=== PATIENT | male | born 1940 | race Hispanic/Latino ===

== ENCOUNTER 2016-08-23 18:38 | Inpatient (IN) | payer OTHER ==
[2016-08-20 02:51] VITALS: BMI 34.6
[2016-08-23] MEDS: Insulin Reg-LOW-Coverage SC SCH (22:20)
[2016-08-24] MEDS: Insulin Reg-LOW-Coverage SC SCH ×4 (06:54→21:23)
[2016-08-24 08:38] LABS: HEMATOCRIT 34.9 % (42.0-52.0); MEAN CELL VOLUME 90.6 fL (80.0-105.0); MEAN CORPUSCULAR HEMOGLOBIN 29.6 pg (25.0-35.0); MEAN CORPUSCULAR HGB CONC 32.7 g/dl (31.0-37.0); MEAN PLATELET VOLUME 8.3 fl (7.0-11.0); RED CELL DISTRIBUTION WIDTH 17.2 % (11.5-14.5); WHITE BLOOD COUNT 10.1 10^3/ul (4.5-11.0)
[2016-08-24 08:46] LABS: ALB/GLOB RATIO 0.9 (1.1-1.8); BILIRUBIN,TOTAL 1.6 mg/dL (0.2-1.3); CALCIUM 8.8 mg/dL (8.4-10.5); POTASSIUM 4.8 mmol/L (3.6-5.0); TOTAL PROTEIN 7.5 g/dL (5.8-8.3)
[2016-08-24 09:52] LABS: INR 2.46 (0.93-1.08)
[2016-08-24] MEDS: POLYETHYLENE GLYCOL 3350 17 GM/Dose PACKET PO SCH (10:31)
[2016-08-25] MEDS: Insulin Reg-LOW-Coverage SC SCH ×4 (06:35→21:52)
[2016-08-25] MEDS: POLYETHYLENE GLYCOL 3350 17 GM/Dose PACKET PO SCH (10:12)
[2016-08-26] MEDS: Insulin Reg-LOW-Coverage SC SCH ×4 (07:26→22:37)
[2016-08-26] MEDS: POLYETHYLENE GLYCOL 3350 17 GM/Dose PACKET PO SCH (10:07)
[2016-08-26] MEDS ORDERED: metOLazone 5 MG TAB PO STA (14:53)
--- NOTE | 2016-08-26 16:36 | CON ---
DATE: 08/26/2016 The patient is in room 318, bed 1. REASON FOR CONSULTATION: Acute decompensated congestive heart failure, history of ischemic cardiomyo justo, history of CABG, history of AICD. HISTORY OF PRESENT ILLNESS: This is a 75-year-old male, resident of [place], who was visiting robyn grijalva here. He was brought to the Emergency Room because of having shortness of breath for a couple of days. The patient also had PND and orthopnea. The patient is known to have coronary artery disea se for which he had triple vessel bypass in 2004, history of AICD insertion in 2010 when he was told to have LV ejection fraction around 20%. The patient denies chest pain. The patient is sitting in c hair comfortably without any cardiac symptoms. The patient was on medical floor where he was gilberto sloan and now he is in transitional care unit for deconditioning and physical therapy. PAST MEDICAL HISTORY: Diabetes, hypertension, hyperlipidemia, coronary artery disease, status post C ABG in 2004, triple vessel, status post AICD insertion in 2010 and is being followed in [place] with a immigration patrol inspector. PERSONAL HISTORY: Denies smoking. Denies any history of alcohol abuse. Used to smoke 30 years ago and he stopped. HOME MEDICATIONS: The patient's medications include Coumadin 3 mg daily, glipizide, Lasix, Coreg, me tolazone, Plavix, gabapentin. ALLERGIES: No known allergies. REVIEW OF SYSTEMS: All the systems were reviewed, positive mentioned in the history, others were neg ative. DIAGNOSES: The patient's past medical history is significant for diabetes, hypertension, hyperlipide glory, coronary artery disease, status post CABG 2004, triple vessel bypass, status post AICD insertion in 2010, being followed in [place] by immigration patrol inspector. PERSONAL HISTORY: Denies smoking. Denies any alcohol abuse, smoking was stopped 30 years ago. MEDICATIONS: Included Coumadin, Lasix, Coreg, Tricor, Plavix, gabapentin, Levaquin, and Ambien 5 mg. ALLERGIES: No known drug allergies. REVIEW OF SYSTEMS: All the systems were reviewed, positive mentioned in the history, others were neg ative. PHYSICAL EXAMINATION: VITAL SIGNS: Blood pressure 114/69, respirations 18, pulse 89, temperature 97.3. HEENT: Head is normocephalic. Eyes: Pupils normal. Conjunctivae slightly pale. NECK: JVP low. Carotids equal. THORAX: AP diameter normal. LUNGS: Clear. CARDIOVASCULAR: S1, S2. ABDOMEN: Soft, nontender, no organomegaly. EXTREMITIES: No clubbing, no cyanosis. LABORATORY DATA: Shows WBC 10.1, hemoglobin 11.4, hematocrit 34.9, platelets 241. Sugar 160. Sodiu m 134, potassium 4.8, BUN 67, creatinine 2.0, total bilirubin 1.6, AST 38, ALT 30. Total protein 7.5 , albumin . Echocardiogram was done 08/21/2016, showed 4-chamber dilatation consistent with card iomyopathy with LV ejection fraction of 25%. At that time, patient was on Primacor, mild to moderate aortic stenosis, mitral regurgitation, tricuspid regurgitation, aortic regurg, RVSP 42 mmHg. Chest x-ray showed mild cardiomegaly status post CABG, calcification in the aortic arch, stable position of left-sided pacemaker device, decompensated congestive heart failure, borderline troponin 0.19 possib ly secondary to underlying coronary artery disease versus congestive heart failure in the face of chr onic kidney disease, creatinine clearance of only 30, may relate to AICD insertion, coronary artery d isease status post CABG, status post AICD insertion. PLAN: The patient is on Lasix 40 b.i.d., still has some swelling on the legs, will give Zaroxolyn 5 mg today to help with the swelling on the legs. The patient already getting warfarin 2 mg p.o. daily . Last prothrombin time was on 08/24/2016. Protime 26.6, INR 2.46, therapeutic level. The pat fausto is in transitional care unit for deconditioning and continue physical therapy. Because of swell ing of legs, we will give her Zaroxolyn 5 mg p.o. today. The patient is on Coreg 6.25 b.i.d., warfar in 2 mg daily, Lasix 40 p.o. b.i.d., Neurontin 300 mg p.o. b.i.d., Plavix 75 mg daily, Seroquel 50 mg p.o. at night. We will continue present therapy and we will follow with you. Deya Mancia MD cc: [id number] TT: 08/26/2016 16:36:11 Confirmation # [id number] Dictation # [id number] dn
[2016-08-27] MEDS: Insulin Reg-LOW-Coverage SC SCH ×4 (06:34→22:01)
[2016-08-27 06:46] LABS: ADD MANUAL DIFF? NO
[2016-08-27 06:55] LABS: BASO # 0.08 K/mm3 (0.0-2.0); BASO % 1.1 % (0.0-3.0); EOS # 0.5 (0.0-0.7); EOS % 6.6 % (1.5-5.0); GRAN # 4.42 (1.4-6.5); GRAN % 59.5 % (50.0-68.0); HEMATOCRIT 34.1 % (42.0-52.0); LYMPH # 1.5 (1.2-3.4); LYMPH % 20.4 % (22.0-35.0); MEAN CELL VOLUME 90.2 fL (80.0-105.0); MEAN CORPUSCULAR HEMOGLOBIN 29.9 pg (25.0-35.0); MEAN CORPUSCULAR HGB CONC 33.1 g/dl (31.0-37.0); MEAN PLATELET VOLUME 8.2 fl (7.0-11.0); MONO # 0.9 (0.1-0.6); MONO % 12.4 % (1.0-6.0); PLATELET COUNT 261 10^3/uL (120.0-450.0); WHITE BLOOD COUNT 7.4 10^3/ul (4.5-11.0)
[2016-08-27 07:21] LABS: ALB/GLOB RATIO 0.8 (1.1-1.8); BILIRUBIN,TOTAL 1.3 mg/dL (0.2-1.3); CALCIUM 8.6 mg/dL (8.4-10.5); TOTAL PROTEIN 6.9 g/dL (5.8-8.3)
--- NOTE | 2016-08-27 10:18 | PN ---
DATE: 08/27/2016 REASON FOR CONSULTATION AND FOLLOWUP: Decompensated congestive heart failure, history of ischemic ca rdiomyopathy, history of CABG, history of AICD. BRIEF CLINICAL HISTORY: A 75-year-old male, resident of [place], who was visiting family, kris brandt here because of acute decompensated congestive heart failure, history of coronary artery disease, triple-vessel bypass 2004, history of AICD in 2010, told ejection fraction 20%. Repeat echo in [facility] ejection fraction 25%. The patient initially treated on the floor with IV Primacor, diur etics, significantly improved. Now, the patient transferred to TCU for transitional care unit for th e continuity of care. Denies any chest pain, shortness of breath, any palpitation. Lying flat on e bed. PHYSICAL EXAMINATION: VITAL SIGNS: Temperature afebrile, heart rate 70, blood pressure 109/68. HEENT: PERRLA. Extraocular muscles intact. NECK: Supple. No carotid bruit or thyromegaly. CHEST: Clear to auscultation. HEART: S1, S2 regular. ABDOMEN: Soft. EXTREMITIES: Clubbing and cyanosis negative. LABORATORY DATA: Blood workup as follows: WBC 7.4, hemoglobin 11, hematocrit 34.1, platelet count 2 61. Chemistry shows sodium 137, potassium 4, chloride 100, carbon dioxide 28, anion gap of 13, BUN 6 0, creatinine 1.9. IMPRESSION: Renal insufficiency, diabetes, hypertension, hyperlipidemia, chronic renal insufficiency , cardiomyopathy. Last echo shows ejection fraction 25 when the patient was on Primacor. Known his tory of decreased left ventricular function by 20% in [place]. The patient is being followed in [place]. History of coronary artery bypass surgery, triple vessel, history of automatic implan table cardioverter-defibrillator in 2010, renal insufficiency. History of chronic atrial fibrillatio n. INR 2.46. RECOMMENDATION: Continue anticoagulation. Continue Lasix. Continue rehab. We will follow with you . Thank you, Dr. Carrillo, for providing the opportunity in taking care of the patient. Monitor elect rolytes. We will follow with you. Deya Fisher MD cc: [id number] TT: 08/27/2016 10:17:52 Confirmation # [id number] Dictation # [id number] tn
--- NOTE | 2016-08-27 10:33 | PN ---
DATE: 08/26/2016 The patient is a 75-year-old male who was admitted to [facility] on 08/20 with congestive heart failure. He had been living in [place]. He has recently been discharged from a hospital there, including a subacute rehab facility. However, he continued to fall at home. His legs were ed ematous. Therefore, his son who was a [facility] resident brought him to [facility] for admission and furt her evaluation and treatment. He is known to have a history of atrial fibrillation, diabetes, hypert ension, neuropathy, cardiac arrhythmias, status post permanent pacemaker implant. He is status post cholecystectomy. He did well. He was diuresed on the medical floor and on 08/23 was transferred to [facility] transitional care unit for further diuresis and physical therapy. Prior to his transfer, the sudarshan ent's son related to me the patient's suicidal ideations. He was saying several times that life is n ot worth living. Even though he had guns in his house in [place], he said that way would be too messy; however, in the son's care being transported to [facility], he did relate his tho ughts on carbon monoxide poisoning as a way of suicide. We are continuing with the patient's medicat ions at this time including Coreg 6.25 mg twice a day, warfarin 2 mg once a day, Glucotrol 5 mg, Lasi x 40 mg twice a day, MiraLax, Motrin, Neurontin 300 mg twice a day, Plavix 75 mg, Seroquel 50 mg, tra madol 50 mg q. 6 hours. PHYSICAL EXAMINATION: GENERAL: When seen, the patient is sitting up on the side of his bed. He is complaining of knee tawana n with physical therapy, saying that no one is addressing that. I will change his ibuprofen p.r.n. t o q. 8 hours around the clock to make sure he is covered for the knee pain. LUNGS: Clear. HEART: Regular. EXTREMITIES: Legs are still edematous, +2 to +3. We are attempting to maintain a negative fluid bal ance. A.M. labs are ordered. We will continue to follow the patient closely. We are awaiting consultation from psychiatry, Dr. Will, concerning his suicidal ideations. Chuck Carrillo MD cc: [id number] TT: 08/27/2016 10:33:05 Confirmation # [id number] Dictation # [id number] tn
[2016-08-27] MEDS: POLYETHYLENE GLYCOL 3350 17 GM/Dose PACKET PO SCH (10:44)
[2016-08-28] MEDS: Insulin Reg-LOW-Coverage SC SCH ×4 (06:32→21:56)
[2016-08-28] MEDS: POLYETHYLENE GLYCOL 3350 17 GM/Dose PACKET PO SCH (10:24)
[2016-08-28] MEDS ORDERED: metOLazone 5 MG TAB PO STA (12:35)
--- NOTE | 2016-08-28 13:36 | PN ---
DATE: 08/28/2016 DATE OF SERVICE: 08/28/2016 LOCATION: The patient is in room 318, bed 1. REASON FOR CONSULTATION AND FOLLOWUP: Decompensated congestive heart failure, history of ischemic ca rdiomyopathy, history of CABG, history of AICD. BRIEF HISTORY: A 75-year-old male, resident of [place], who was visiting family, brought here b ecause of acute decompensated congestive heart failure. The patient has history of coronary artery d isease, triple vessel bypass surgery in 2004, history of AICD insertion in 2010, ejection fraction ar ound 20%. Repeat echo done in hospital showed ejection fraction 25%. The patient treated on medical floor, got better, now in transitional care unit for physical therapy and deconditioning. The patie nt denies any chest pain, shortness of breath, or palpitation. Still has edema on the legs, which is also slowly getting less. PHYSICAL EXAMINATION: VITAL SIGNS: Blood pressure 108/68, pulse 87, respirations 18-20. The patient is afebrile. HEAD: Normocephalic. EYES: Pupils normal. Conjunctivae slightly pale. NECK: JVP low. Carotid equal. THORAX: AP diameter normal. LUNGS: Clear. CARDIOVASCULAR: S1, S2. ABDOMEN: Protuberant, no organomegaly. EXTREMITIES: The patient still has 3+ edema bilaterally. No clubbing and no cyanosis. LABORATORY DATA: WBC 7.4, hemoglobin 11.3, hematocrit 34.1, platelet 261. Sodium 137, potassium 4.0 , BUN 67, creatinine 1.9, glucose 91. AST, ALT normal. TSH 4.2. DIAGNOSES: Renal insufficiency, diabetes, hypertension, hyperlipidemia, deconditioning, coronary art vitaly disease, status post coronary bypass surgery, automatic implantable cardioverter defibrillator in [facility], renal insufficiency, chronic atrial fibrillation. PLAN: We will give one dose of Zaroxolyn 5 mg today to help with diuresis to decrease the edema of t he legs further. We will continue to follow with you. Deya Mancia MD cc: [id number] TT: 08/28/2016 13:36:37 Confirmation # [id number] Dictation # [id number] sn
[2016-08-29] MEDS: Insulin Reg-LOW-Coverage SC SCH ×4 (06:36→21:40)
[2016-08-29] MEDS: POLYETHYLENE GLYCOL 3350 17 GM/Dose PACKET PO SCH (11:00)
--- NOTE | 2016-08-29 12:17 | PN ---
DATE: 08/29/2016 REASON FOR CONSULTATION AND FOLLOWUP: Decompensated congestive heart failure, history of ischemic ca rdiomyopathy, history of CABG, history of AICD. BRIEF CLINICAL HISTORY: This is a 75-year-old male, resident of [place], who [facility] and brought here because of acute decompensated congestive heart failure. The patient has history of coronary artery disease, status post triple bypass in 2004; history of AICD in 2010, ejection frac tion 20. Repeat echo done at hospital with ejection fraction of 25%, was on Primacor. The patient w as treated on medical floor with IV Lasix and Primacor, significantly improved. Now patient is in [facility] unit for continuity of care and physical therapy. Denies any chest pain, shortness o f breath, any palpitation. Lying flat on the bed. PHYSICAL EXAMINATION: VITAL SIGNS: Temperature afebrile, heart rate 80, blood pressure 127/73. HEENT: PERRLA. Extraocular muscles intact. NECK: Supple. No carotid bruits. No thyromegaly. CHEST: Clear to auscultation. HEART: S1, S2 regular. ABDOMEN: Soft. EXTREMITIES: Clubbing and cyanosis negative. BLOOD WORKUP: WBC 7.____, hemoglobin 11.3, hematocrit 34.1, platelet count 261. INR 2.46. Recent l ab SMA-7 not available. Last one on 08/27/2016 shows a sodium 137, potassium 4, chloride 100, carbon dioxide 28. IMPRESSION: Chronic atrial fibrillation, decompensated congestive heart failure, ischemic cardiomyop athy, status post automatic implantable cardioverter-defibrillator, status post coronary artery bypas s graft in the past, diabetes, hypertension, hyperlipidemia, obesity. RECOMMENDATION: Will repeat the lab in the morning. Continue diuretics. Monitor electrolytes. Mon itor INR. Will follow with you. Thank you, Dr. Carrillo, for providing the opportunity in taking care of the patient. Will follow w ith you. Deya Fisher MD cc: [id number] TT: 08/29/2016 12:16:50 Confirmation # [id number] Dictation # [id number] mn
--- NOTE | 2016-08-29 14:28 | CON ---
DATE: 08/29/2016 HISTORY OF PRESENT ILLNESS: The patient is a 75-year-old white male with a history of depres jaylen, no reports of suicide attempts or psychiatric hospitalizations, who was admitted to [facility] with congestive heart failure. The patient's son also reported collateral that patient i ndicated prior to admission, he had suicidal thoughts, indicating that his life was not worth living and that even though he had guns in his home in [place], he said that way would be too messy. T he patient also did indicate to his son that he had thoughts about carbon monoxide poisoning as a way of suicide. Psychiatry was consulted to evaluate for these reported suicidal ideations as well as marc avinash's agitation on the unit. I met with patient at bedside today. He is alert and oriented to cu rrent location, circumstances, month and year. The patient is superficially cooperative with fair fo cus and eye contact. Does not appear to be entirely engaged with my interview, but he is cooperative . The patient presently denies any depression, but does report having a history of depression. He a ppears to be evasive about this subject. Regarding any suicidal thoughts, he says "not now, no." He is fairly coherent. He denies any hallucinations. He denies any paranoid thoughts, and delusions w ere not elicited. The patient is in fair control right at this time, although this provider did read prior notes that indicate that the patient had periods of agitation and told a staff member that he wanted to punch their face. Affect is constricted and insight and judgment is considered to be fair. Impulse control is strenuously intact. VITAL SIGNS AND LABORATORY: Reviewed by this provider. PSYCHIATRIC MEDICATIONS: The patient is being prescribed Seroquel 50 mg at 10:00 p.m. and Ambien 5 m g at bedtime p.r.n. SOCIAL HISTORY: The patient was born in [place]. He is . He has 3 children. He lives by himself. 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 The patient denies any drug or alcohol issues. The patie nt reports that he was arrested a few times for disorderly conduct approximately 30 years ago. PSYCHIATRIC HISTORY: The patient denies any psychiatric inpatient hospitalizations. Denies any suic star attempts. The patient denies any current psychiatric treatment; however, did follow up with a ps ychiatrist about a year ago on one occasion at the [facility] for suicidal thoughts. The patient denies medi cations were ever prescribed for him at that point, but does report that he has been prescribed medic ations in the past for depression; however, cannot recall that. IMPRESSION: Depression, not otherwise specified. Rule out major depressive disorder, severe, recurr ent. Rule out contribution of adjustment disorder with depression as well as delirium contributing t o patient's agitation and confusion on the unit earlier. RECOMMENDATIONS: 1. At this time, patient is minimizing his symptoms and denies having any suicidal thoughts and he e tacho denies having any depression contrary to account by his son. Psychiatry will continue to follow up with patient and try to elicit a trust; however, at this time, patient is evasive regarding his cu rrent functioning. In this respect, I cannot start prescribing medication until he is ready and will ing to take it for mood symptoms. 2. Nonetheless, I will prescribe Haldol 1 mg every 6 hours p.r.n. for agitation if this should recur . 3. As mentioned, psychiatry will continue to follow up and this case will be endorsed to Dr. Jovany muñoz, who will be returning tomorrow. Ruchi Jacobs MD cc: [id number] TT: 08/29/2016 14:27:23 Confirmation # [id number] Dictation # [id number] ana cristina
[2016-08-29 15:41] VITALS: RESP 18
[2016-08-30] MEDS: Insulin Reg-LOW-Coverage SC SCH ×4 (06:30→22:23)
[2016-08-30 06:55] LABS: ADD MANUAL DIFF? NO
[2016-08-30 07:10] LABS: BASO # 0.03 K/mm3 (0.0-2.0); BASO % 0.4 % (0.0-3.0); EOS # 0.6 (0.0-0.7); EOS % 7.7 % (1.5-5.0); GRAN # 4.34 (1.4-6.5); GRAN % 58.9 % (50.0-68.0); HEMATOCRIT 32.9 % (42.0-52.0); LYMPH # 1.8 (1.2-3.4); LYMPH % 23.8 % (22.0-35.0); MEAN CELL VOLUME 90.6 fL (80.0-105.0); MEAN CORPUSCULAR HEMOGLOBIN 29.8 pg (25.0-35.0); MEAN CORPUSCULAR HGB CONC 32.8 g/dl (31.0-37.0); MEAN PLATELET VOLUME 7.7 fl (7.0-11.0); MONO # 0.7 (0.1-0.6); MONO % 9.2 % (1.0-6.0); PLATELET COUNT 250 10^3/uL (120.0-450.0); RED CELL DISTRIBUTION WIDTH 16.8 % (11.5-14.5); WHITE BLOOD COUNT 7.4 10^3/ul (4.5-11.0)
[2016-08-30 07:15] LABS: ALB/GLOB RATIO 0.8 (1.1-1.8); BILIRUBIN,TOTAL 0.9 mg/dL (0.2-1.3); CALCIUM 8.8 mg/dL (8.4-10.5); MAGNESIUM 2.1 mg/dL (1.7-2.2); PHOSPHOROUS 4.2 mg/dL (2.5-4.5); POTASSIUM 3.7 mmol/L (3.6-5.0)
[2016-08-30 07:26] LABS: INR 2.4 (0.93-1.08)
--- NOTE | 2016-08-30 09:40 | PN ---
DATE: 08/30/2016 REASON FOR CONSULTATION AND FOLLOWUP: Decompensated congestive heart failure, history of ischemic ca rdiomyopathy, history of CABG, history of AICD. BRIEF CLINICAL HISTORY: This is a 75-year-old male, resident of [place], who was visiting famil y and brought here because of acute decompensated congestive heart failure. The patient has a histor y of coronary artery disease, history of triple vessel bypass in 2004, history of AICD in 2010, eject ion fraction 20%. Recent echo done: Ejection fraction 25%, on Primacor. The patient was treated me dically for now. The patient was transferred to transitional care unit for the continuity of the car e. History of chronic atrial fibrillation, on anticoagulation. PHYSICAL EXAMINATION: VITAL SIGNS: Temperature afebrile, heart rate 73, blood pressure 106/67. HEENT: PERRLA. Extraocular muscles intact. NECK: Supple. No carotid bruits. No thyromegaly. CHEST: Clear to auscultation. HEART: S1, S2 regular. ABDOMEN: Soft. EXTREMITIES: Clubbing and cyanosis negative. BLOOD WORKUP: WBC 7.4, hemoglobin 10.9, hematocrit 32.9, platelet count 250. Chemistry shows sodium 141, potassium 3.7, chloride 90, carbon dioxide 33, anion gap of 13, BUN 66, creatinine 1.9. IMPRESSION: Chronic kidney disease; acute kidney injury, acute on chronic; obesity, diabetes, hypert ension, hyperlipidemia; coronary artery disease, ischemic cardiomyopathy, ejection fraction 20%, stat us post automatic implantable cardioverter-defibrillator, history of coronary artery bypass in 2004; history of chronic atrial fibrillation, on anticoagulation. INR therapeutic 2.4. RECOMMENDATION: Continue Coreg 6.25 twice. Continue Coumadin 2 mg; goal is to keep INR between 2 an d 2.5. Continue Lasix 40 b.i.d. Continue Plavix. Continue rehab. Will follow with you. Thank you, Dr. Carrillo, for providing the opportunity in taking care of this patient. CV status is stable. Will follow with you. Deya Fisher MD cc: [id number] TT: 08/30/2016 09:39:23 Confirmation # [id number] Dictation # [id number] mn
[2016-08-30] MEDS: POLYETHYLENE GLYCOL 3350 17 GM/Dose PACKET PO SCH (09:47)
[2016-08-30] MEDS: metOLazone 5 MG TAB PO SCH (13:33)
--- NOTE | 2016-08-30 15:59 | PN ---
DATE: 08/30/2016 Shortly, the patient is a 75-year-old male with history of depression. No history of suici rufino attempts or psychiatric admissions. The patient was admitted to the medical floor for evaluation of congestive heart failure. Psych consult was called for evaluation of possible suicidal ideations . The patient was evaluated today. The patient initially was seen by Dr. Jacobs; notes reviewed. As per Dr. Jacobs's notes, patient had suicidal ideation prior to coming to the hospital, but during her interview with the patient, patient denied any thoughts of harming himself which is confirmed by thi s sports writer today. The patient reported that he came to the hospital because of the falls and not feeli ng good. At present moment patient denied any falls and the patient reported that he feels better. The patient denied any thoughts of killing himself or others. The patient reported that his depressi ve symptoms are much better. The patient is not sure what medication he is taking but reported to mauro ve improvement with his mood as well as sleep. The patient reported that he has future plans to stay with his daughter and son here in [place]. The patient denied hearing voices, denied seeing things. The patient was appreciative toward the medical team as well as psychiatric team. The patient repo rted to have fair appetite and sleep and expressed no concerns. The patient was observed watching TV , using headphones; seems to be enjoying it. VITAL SIGNS: This sports writer reviewed vital signs. Vital signs seem to be stable. Temperature 97.3, pu lse is 77, blood pressure 101/64, respirations 18, oxygen saturation 96%. MEDICATIONS: Reviewed. The patient is on Coreg, Lasix, Colace, Lasix, Neurontin, Motrin, Humulin, M iraLax. The patient is on Seroquel 50 mg at 10 p.m., Senokot, Ultram, Coumadin, and Ambien for insom isaías 5 mg. LABORATORY DATA: Reviewed. MENTAL STATUS EXAMINATION: The patient appears to be at his chronological age. Fair eye contact. S peech was somewhat underproductive, but normal rate and tone. Mood described, "I feel much better." Affect was constricted, mood congruent. Thought process was coherent and goal directed. Thought co ntent: The patient denied visual, auditory, tactile hallucinations. Denied paranoid ideations. The patient denied thoughts of harming himself or others. Denied intent or plan. Insight and judgment are improving. Impulses are well controlled. IMPRESSION: This sports writer agreed with Dr. Jacobs. Most likely the patient had depressive symptoms rela horacio to delirium due to his medical condition for what patient was started on Seroquel. RECOMMENDATIONS: Continue Seroquel 50 mg at the nighttime for at least a week then it has to be disc ontinued. The patient did not have any p.r.n. medication of Haldol. The patient would benefit from followup with a psychiatrist as outpatient. Please provide phone number for [facility]. The patient has future oriented plans to stay with his family in [place], with his daughter and his son. The patient denied any plan or intent of killing himself. The patient will stay in [facility]. Psychiatric team will be following patient every other day to make sure that patient is improving. Meanwhile, today patient expressed no thoughts of harming himself or others. Dr. Reynaldo riggs ay follow up on this patient on Friday if the patient is still here in the hospital. Thank you very much for letting me participate in the care of your patient. Should you have any ques tions, give me a call back. Nicolette Au MD cc: [phone] TT: 08/30/2016 15:58:26 Confirmation # [id number] Dictation # [id number] mn
--- NOTE | 2016-08-30 21:47 | PN ---
DATE: 08/29/2016 The patient was seen this evening in transitional care unit. During the course of the day, I spoke with patient's son regarding discharge plans. Initially, we were looking for him to go home or to rehab facility near home, but it turns that he may actually come to his son's home in [facility] or a few weeks while he continues to recuperate and then return to [place]. In the interim, he remains on large doses of IV diuretics for his improving congestive heart failure. We will follow megahn person. Teofilo Carrillo MD cc: [id number] TT: 08/30/2016 21:46:32 Confirmation # [id number] Dictation # [id number] jn
--- NOTE | 2016-08-30 23:16 | PN ---
DATE: 08/30/2016 The patient was seen this Friday morning in the transitional care unit, room 318, bed 1. He is sitti ng on the bed, awake, alert and clear and then went for a walk with his physical therapist. He was a ble to walk the length of the menjivar to the distant window with a rolling walker. He has no specific c omplaints, and does not report any chest pain or exertional dyspnea, but does complain that his legs are swollen. PHYSICAL EXAMINATION: EXTREMITIES: pitting +3 edema of the lower extremities up to the knee. HEART: Irregular from atrial fibrillation. LABORATORY DATA: Show CBC and chemistries to be acceptable. He is adequately anticoagulated on Coum sen with an INR approximately 2.2. PLAN: The patient will be ready for discharge to home tomorrow. I will add a dose of Zaroxolyn toda y to his oral Lasix in an attempt for additional diuresis. I spoke with patient's son the other day and will talk with them tomorrow at the time of discharge. Teofilo Carrillo MD cc: [id number] TT: 08/30/2016 23:15:25 Confirmation # [id number] Dictation # [id number] william
[2016-08-31 05:53] VITALS: TEMP 98.3; O2SAT 97
[2016-08-31] MEDS: Insulin Reg-LOW-Coverage SC SCH (06:31)
[2016-08-31 08:40] VITALS: BP 111/68; PULSE 76
[2016-08-31] MEDS: POLYETHYLENE GLYCOL 3350 17 GM/Dose PACKET PO SCH (09:33)
[2016-08-31] MEDS: metOLazone 5 MG TAB PO SCH (09:38)
--- NOTE | 2016-09-02 09:58 | CP.PCM.PCO ---
Physician Communication Note - Physician Communication Note Physician Communication Note: pt was d/c before f/u
--- NOTE | 2016-09-27 11:58 | DS ---
This is a 75-year-old man, a new patient to me, who I met for the first time on 08/20 when he came to the acute care facility at [facility]. He lives in [place]. His son is a patient of mine here in [place]. He had 6 falls at home that caused his son to bring him to the hospital. He was f ound in CHF, volume overload, anasarca and admitted. After aggressive diuresis, his atrial fibrillat ion, diabetes, hypertension were under better control and he now comes to the transitional care unit for additional physical therapy, conditioning and adjustment of medications. While on the TCU, he engaged in the activities of the unit. His medications were adjusted. He was f ollowed by [facility] consultant, Dr. Fisher and Dr. Mancia, as well as by myself. He did well. Conve rsations were held with the patient's son regarding discharge planning, whether that would be back to home or to a rehab facility. It was felt best that the patient come to the son's house for a period of time. His medications were reviewed and adjusted and he will be seen in followup after discharge . FINAL DISCHARGE DIAGNOSES: 1. Deconditioning. 2. Congestive heart failure. 3. Atrial fibrillation. 4. Recent pneumonia. 5. History of tobacco use in the distant past. 6. Permanent pacemaker placement 5 years ago. 7. Recent hospitalizations with congestive heart failure and chronically elevated troponins. Teofilo Carrillo MD cc: [id number] TT: 09/27/2016 11:56:50 rn
== END 2016-08-31 10:44 | disposition home or self-care (01) | DRG 292 ==
LOC: TRCU 18:38
PROVIDERS: ADMIT Internal Medicine; ATTEND Internal Medicine
PROC: F07Z9FZ Gait Training/Functional Ambulation Treatment using Assistive, Adaptive, Supportive or Protective Equipment (ICD-10-PCS; principal; 2016-08-24)
PROC: F07Z9ZZ Gait Training/Functional Ambulation Treatment (ICD-10-PCS; 2016-08-24)
PROC: F08Z1ZZ Dressing Techniques Treatment (ICD-10-PCS; 2016-08-24)
PROC: F08Z2ZZ Grooming/Personal Hygiene Treatment (ICD-10-PCS; 2016-08-24)
PROC: F08Z0ZZ Bathing/Showering Techniques Treatment (ICD-10-PCS; 2016-08-24)
DX: I50.43 Acute on chronic combined systolic (congestive) and diastolic (congestive) heart failure (principal); I13.0 Hypertensive heart and chronic kidney disease with heart failure and stage 1 through stage 4 chronic kidney disease, or unspecified chronic kidney disease; N17.9 Acute kidney failure, unspecified; R45.851 Suicidal ideations; E11.22 Type 2 diabetes mellitus with diabetic chronic kidney disease; I48.2 Chronic atrial fibrillation; G62.9 Polyneuropathy, unspecified; J44.9 Chronic obstructive pulmonary disease, unspecified; I25.5 Ischemic cardiomyopathy; E66.9 Obesity, unspecified; E78.5 Hyperlipidemia, unspecified; I25.10 Atherosclerotic heart disease of native coronary artery without angina pectoris; F32.89 Other specified depressive episodes; N18.9 Chronic kidney disease, unspecified; M19.90 Unspecified osteoarthritis, unspecified site; Z95.810 Presence of automatic (implantable) cardiac defibrillator; Z91.81 History of falling; Z90.49 Acquired absence of other specified parts of digestive tract; Z95.0 Presence of cardiac pacemaker; Z87.891 Personal history of nicotine dependence; Z95.1 Presence of aortocoronary bypass graft; Z79.899 Other long term (current) drug therapy; Z79.01 Long term (current) use of anticoagulants; Z79.84 Long term (current) use of oral hypoglycemic drugs; Z87.01 Personal history of pneumonia (recurrent); Z68.35 Body mass index [BMI] 35.0-35.9, adult